=== PATIENT | male | born 1995 | race African-American/Black ===

== ENCOUNTER 2019-10-31 21:47 | Emergency (ER) | payer MEDICAID ==
[~2019-10-31] VITALS: Ht 177.8 cm; Wt 82.0 kg
[2019-10-31] MEDS ORDERED: ONDANSETRON HCL 4MG/2ML INJ IV STA (22:16)
[2019-10-31 22:47] LABS: BASOPHILS % 1.1 % (0.0-2.0); EOSINOPHILS % 1.6 % (0.0-5.0); HEMATOCRIT. 40.4 % (42.0-52.0); HEMOGLOBIN. 13.9 g/dL (14.0-18.0); MEAN CORPUSCULAR HEMOGLOBIN 31.9 pg (28.0-32.0); MEAN CORPUSCULAR VOLUME 92.7 fL (80.0-94.0); MEAN PLATELET VOLUME 8.3 fl (7.4-10.4); MONOCYTES % 11.5 % (2.0-8.0); NEUTROPHILS % 57.8 % (40.0-76.0); PLATELET 211 x1000/uL (130-400); RED BLOOD CELL COUNT 4.36 mill/uL (4.7-6.1)
[2019-10-31 22:52] LABS: CHLORIDE 105 mEq/L (98-107)
[2019-11-01 00:30] VITALS: BP 133/67
== END 2019-11-01 00:30 | disposition home or self-care (01) ==
LOC: ER 21:47
DX: R05 Cough (principal); R06.02 Shortness of breath; R07.89 Other chest pain; F17.290 Nicotine dependence, other tobacco product, uncomplicated; F20.9 Schizophrenia, unspecified
CPT/HCPCS: 36415; 71045; 80053; 83880; 84484; 85025; 93005; 99285; J2405